=== PATIENT | female | born 1975 | race American Indian/Alaskan Native ===

== ENCOUNTER 2016-12-19 16:40 | Inpatient (IN) | payer BC ==
[2016-12-19 18:56] LABS: Hematocrit 27.4 % (30.3-42.9); Hemoglobin 8.4 gm/dl (10.1-14.3); Mean Corpuscular HGB Conc 31 % (30-34); Mean Corpuscular Volume 72 fl (79-97); Platelet Count 331 K/mm3 (140-440); Red Cell Distribution Width 18.8 % (13.2-15.2); White Blood Count 8.8 K/mm3 (4.5-11.0)
[2016-12-19 18:58] LABS: Mean Corpuscular Hemoglobin 22 pg (28-32)
[2016-12-19 19:44] LABS: Anion Gap 17 mmol/L; BUN/Creatinine Ratio 13.33; Blood Urea Nitrogen 8 mg/dL (7-17); Calcium 9.1 mg/dL (8.4-10.2); Carbon Dioxide 24 mmol/L (22-30); Chloride 98.1 mmol/L (98-107); Glucose 100 mg/dL (65-100); Sodium 135 mmol/L (137-145)
[2016-12-19 20:31] LABS: Bilirubin,Urine NEG (Negative); Blood,Urine NEG (Negative); Ketones,Urine NEG (Negative); Leukocyte Esterase,Urine MOD (Negative); Mucus,Urine FEW /HPF; Nitrite,Urine NEG (Negative); Protein,Urine <15 mg/dL mg/dL (Negative); Urobilinogen,Urine < 2.0 mg/dL (<2.0)
--- NOTE | 2016-12-19 21:47 | Cat Scan Report ---
FINAL REPORT PROCEDURE: CT HEAD/BRAIN WO CON TECHNIQUE: Computerized tomography of the head was performed without contrast material. HISTORY: syncope COMPARISON: No prior studies are available for comparison. FINDINGS: Skull and scalp: Normal. Paranasal sinuses: Normal. Ventricles and subarachnoid spaces: Normal. Cerebrum: No evidence of hemorrhage, acute infarction or mass . Cerebellum and brainstem: No evidence of hemorrhage, acute infarction or mass. Vasculature: Normal. Comments: None. IMPRESSION: Normal Examination
[2016-12-19] MEDS ORDERED: ANTIVERT PO ONE (23:21)
--- NOTE | 2016-12-19 23:25 | Emergency Department Report ---
HPI - General Chief Complaint: Syncope Time Seen by Provider: 12/19/16 23:12 - [facility] HPI: Room 5 The patient is a 41-year-old female presenting with a chief complaint of syncope. The patient states she awakened this morning in her usual state of health. The patient states while in the shower she felt slight dizziness. The patient states the dizziness has been intermittent throughout the day. At work she began to feel dizzy and went to visit the nurse. The patient states she was told she had a normal blood pressure and went back to work. At approximately 15:30 the patient states she turned around to talk to a coworker and passed out. Patient denied preceding chest pain, shortness of breath or palpitations. Patient denies nausea vomiting or diarrhea. Patient denies any history of bright red blood per rectum or melena. The patient currently complains of a slight headache and intermittent dizziness. After her initial syncopal episode and EMS was called, the patient states she was reported to have lost consciousness 3 more times with EMS. 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 - Family History Family history: no significant - Social History Smoking Status: Never Smoker Substance Use Type: None (denies illicit drug use), Alcohol (occasional) ED Review of Systems ROS: Stated complaint: HEADACHE AND DIZZY Other details as noted in HPI Comment: All other systems reviewed and negative Constitutional: denies: chills, fever Eyes: denies: eye pain, eye discharge, vision change ENT: denies: ear pain, throat pain Respiratory: denies: cough, shortness of breath, wheezing Cardiovascular: denies: chest pain, palpitations Endocrine: no symptoms reported Gastrointestinal: denies: abdominal pain, nausea, diarrhea Genitourinary: denies: urgency, dysuria, discharge Musculoskeletal: denies: back pain, joint swelling, arthralgia Skin: denies: rash, lesions Neurological: headache, vertigo, other (syncope) Psychiatric: denies: anxiety, depression Hematological/Lymphatic: denies: easy bleeding, easy bruising Physical Exam - Physical Exam Vital Signs: Vital Signs 12/19/16 12/19/16 18:17 22:44 Temperature 98 F 98.7 F Pulse Rate 96 H 94 H Respiratory 18 18 Rate Blood Pressure 160/100 Blood Pressure 135/81 [Left] O2 Sat by Pulse 100 98 Oximetry Physical Exam: GENERAL: The patient is well-developed well-nourished female lying on stretcher not appearing to be in acute distress. Patient complains of dizziness when she attempts to sit up from stretcher HEENT: Normocephalic. Atraumatic. Extraocular motions are intact. Patient has moist mucous membranes. There is no nystagmus NECK: Supple. No meningitic signs are noted. Trachea midline CHEST/LUNGS: Clear to auscultation. There is no respiratory distress noted. HEART/CARDIOVASCULAR: Regular. There is no tachycardia. There is no gallop rub or murmur. ABDOMEN: Abdomen is soft, nontender. Patient has normal bowel sounds. There is no abdominal distention. SKIN: There is no rash. There is no edema. There is no diaphoresis. NEURO: The patient is awake, alert, and oriented. The patient is cooperative. The patient has no focal neurologic deficits. The patient has normal speech MUSCULOSKELETAL:There is no evidence of acute injury. ED Course Vital Signs 12/19/16 12/19/16 18:17 22:44 Temperature 98 F 98.7 F Pulse Rate 96 H 94 H Respiratory 18 18 Rate Blood Pressure 160/100 Blood Pressure 135/81 [Left] O2 Sat by Pulse 100 98 Oximetry ED Medical Decision Making - Lab Data Result diagrams: 12/19/16 18:46 12/19/16 18:46 Laboratory Tests 12/19/16 12/19/16 12/19/16 18:46 18:46 20:04 WBC 8.8 RBC 3.80 Hgb 8.4 L Hct 27.4 L MCV 72 L MCH 22 L MCHC 31 RDW 18.8 H Plt Count 331 Sodium 135 L Potassium 4.0 Chloride 98.1 Carbon Dioxide 24 Anion Gap 17 BUN 8 Creatinine 0.6 L Estimated GFR > 60 BUN/Creatinine Ratio 13.33 Glucose 100 Calcium 9.1 Total Creatine Kinase CK-MB (CK-2) CK-MB (CK-2) Rel Index Troponin T Urine Color Yellow Urine Turbidity Clear Urine pH 6.0 Ur Specific [place] 1.013 Urine Protein <15 mg/dl Urine Glucose (UA) Neg Urine Ketones Neg Urine Blood Neg Urine Nitrite Neg Ur Reducing Substances Not Reportable Urine Bilirubin Neg Urine Ictotest Not Reportable Urine Urobilinogen < 2.0 Ur Leukocyte Esterase Mod Urine WBC (Auto) 2.0 Urine RBC (Auto) 2.0 U Epithel Cells (Auto) 3.0 Urine Mucus Few Urine HCG, Qual Negative 12/19/16 23:14 WBC RBC Hgb Hct MCV MCH MCHC RDW Plt Count Sodium Potassium Chloride Carbon Dioxide Anion Gap BUN Creatinine Estimated GFR BUN/Creatinine Ratio Glucose Calcium Total Creatine Kinase 121 CK-MB (CK-2) 1.1 CK-MB (CK-2) Rel Index 0.9 Troponin T < 0.010 Urine Color Urine Turbidity Urine pH Ur Specific [place] Urine Protein Urine Glucose (UA) Urine Ketones Urine Blood Urine Nitrite Ur Reducing Substances Urine Bilirubin Urine Ictotest Urine Urobilinogen Ur Leukocyte Esterase Urine WBC (Auto) Urine RBC (Auto) U Epithel Cells (Auto) Urine Mucus Urine HCG, Qual - EKG Data -: EKG Interpreted by Me EKG shows normal: sinus rhythm Rate: normal - EKG Data When compared to previous EKG there are: previous EKG unavailable Interpretation: nonspecific ST-T wave tawnya (T-wave inversions in leads 3, V2, V3) - Radiology Data Radiology results: report reviewed (CT head), image reviewed (CT head) CT head (read by radiologist)-normal examination - Differential Diagnosis syncope, vertigo, symptomatic anemia, ACS Critical care attestation.: If time is entered above; I have spent that time in minutes in the direct care of this critically ill patient, excluding procedure time. ED Disposition Clinical Impression: Syncope, Anemia, Dizziness Disposition: OP ADMITTED IP TO THIS HOSP Is pt being admited?: Yes Condition: Fair Instructions: Syncope (ED) Referrals: PRIMARY CARE, [Primary Care Provider] - 3-5 Days Time of Disposition: 23:50 (hospitalist paged)
[2016-12-19 23:35] LABS: Creatine Kinase MB 1.1 ng/mL (0.0-4.0)
[2016-12-19 23:36] LABS: Creatine Kinase 121 units/L (30-135)
[2016-12-20] MEDS ORDERED: TYLENOL PO PRN (01:13)
[2016-12-20] MEDS ORDERED: MILK OF MAGNESIA PO PRN (01:13)
[2016-12-20] MEDS ORDERED: ZOFRAN IV PRN (01:13)
[2016-12-20] MEDS ORDERED: DULCOLAX PR PRN (01:13)
[2016-12-20 02:31] LABS: Creatine Kinase 82 units/L (30-135); Creatine Kinase MB < 1.0 ng/mL (0.0-4.0)
--- NOTE | 2016-12-20 05:02 | Admit Criteria Form ---
Admission Criteria Documentation: SYNCOPE Clinical Indications for Admission to Inpatient Care ( Place 'X' for any and all applicable criteria): Admission is indicated for syncope and ANY ONE of the following (1)(2)(3)(4)(5) (6)(7) : [X ]I. Inpatient admission required rather than observation care (Also use Syncope: Observation Care Criteria as appropriate) because of ANY ONE of the following: [ ]a) Hemodynamic instability that is severe or persistent [ ]b) Cardiac arrhythmias of immediate concern identified or strongly suspected (eg, needs electrophysiologic study) [ ]c) Acute coronary syndrome identified (Also use Myocardial Infarction or Angina Criteria form ) [ ]d) Structural cardiac disorder (eg, aortic stenosis) suspected as cause that requires immediate correction [ ]e) Respiratory symptoms (eg, dyspnea, tachypnea) that are severe or persistent [ ]f) Neurologic signs or symptoms that are severe or persistent ( eg, stroke, seizures, altered mental status) [ ]g) Severe electrolyte abnormalities requiring inpatient care [ ]h) Supplemental oxygen or respiratory treatment for over 24 hrs that are performable only in acute inpatient setting [ ]i) IV fluid to replace significant ongoing (eg, for over 24 hrs ) losses (>3 L/m2 per day) [ ]j) Continuous intravenous infusion of anticoagulation, platelet inhibitor, vasoactive, or antiarrhythmic medication(15)(16) [ ]k) Pulmonary artery catheter monitoring [ ]l) Temporary pacemaker placement(17) [ ]m) Emergent cardioversion(18) [X ]n) Other conditions, treatment or monitoring requiring inpatient admission [ ]II. Suspicion of imminently dangerous cause (eg, rare causes like pericardial tamponade, pulmonary embolism) [ ]III. Syncope causing severe injury requiring hospitalization Extended stay beyond goal length of stay may be needed for(28) [ ]a) Dangerous arrhythmia(15)(23)(27)(29) [ ]b) Myocardial ischemia [ ]c) Seizure disorder [ ]d) Syncope-related injuries The original [employer] content created by [employer] has been revised. The portions of the content which have been revised are identified through the use of italic text or in bold, and [employer] has neither reviewed nor approved the modified material. All other unmodified content is copyright [facility] [employer]. Please see references footnoted in the original [facility] edition 2016 Admission Criteria Met: Yes
--- NOTE | 2016-12-20 05:29 | History and Physical Report ---
History of Present Illness Date of examination: 12/20/16 Date of admission: 12/20/16 01:13 History of present illness: This is a 41-year-old man with no medical problem comes emergency room should she had a syncopal episode while she was at work sitting down. It's unclear how long the syncopal episode lasted for, she had 3 more episodes after the initial one. She also complaining of a headache 6 Monday in the middle and occipital area, constant, intensity, 10, no radiation, she has not taken anything for the pain. Also complaining of dizziness Patient denies chest pain, palpitation, shortness of breath, cough, abdominal pain, hematochezia, dysuria, frequency, focal weakness, dysarthria, fever chills , polydipsia polyuria, hot or cold intolerance, easy bruisability, or rash or bleeding from mucosal membrane, rhinorrhea, epistaxis, earache, tinnitus, blurry vision, eye discharge, anxiety, depression. Other review of systems negative PAST SURGICAL HISTORY:None SOCIAL HISTORY: Denies alcohol, tobacco, drug FAMILY HISTORY: Hypertension Medications and Allergies Allergies Allergy/AdvReac Type Severity Reaction Status Date / Time No Known Allergies Allergy Unverified 12/19/16 18:22 Home Medications Medication Instructions Recorded Confirmed Last Taken Type Meclizine [Antivert] 25 mg PO TID PRN #90 tablet 12/21/16 Unknown Rx amLODIPine [Norvasc] 5 mg PO DAILY #30 tab 12/21/16 Unknown Rx Active Meds: Active Medications Acetaminophen (Tylenol) 650 mg PO Q4H PRN PRN Reason: Pain MILD(1-3)/Fever >100.5/PARR Bisacodyl (Dulcolax) 10 mg [place] QDAY PRN PRN Reason: Constipation unrelieved by MOM Enoxaparin Sodium (Lovenox) 40 mg SUB-Q QDAY SANTANA Magnesium Hydroxide (Milk Of Magnesia) 30 ml PO Q4H PRN PRN Reason: Constipation Ondansetron HCl (Zofran) 4 mg IV Q8H PRN PRN Reason: N/V unrelieved by Reglan Exam - Physical Exam Narrative exam: Gen. appearance: Patient lying in bed, no apparent distress HEENT: Normocephalic, atraumatic, pupils equally round and reactive to light, extraocular movement intact, and no sclericterus,. No JVD or thyromegaly or nodule,neck supple, no carotid bruit ,mucous membranes moist, no exudate or erythema Heart: S1, S2, regular rate and rhythm Lungs: Clear to auscultation bilaterally, breathing comfortable Abdomen: Positive bowel sounds, nontender, nondistended, no organomegaly Extremity: No edema, cyanosis, clubbing Skin: No rash, nodules, warm, dry Neuro: Oriented 3, cranial nerves II-12 intact, speech is fluent, motor and sensory intact - Constitutional Vitals: Temp Pulse Resp BP Pulse Ox 98.7 F 83 17 130/72 98 12/19/16 22:44 12/19/16 23:28 12/19/16 23:29 12/19/16 23:28 12/19/16 22:44 Results - Labs CBC & Chem 7: 12/21/16 04:38 12/21/16 04:38 - Imaging and Cardiology CT Scan - head: report reviewed Assessment and Plan Syncope unclear etiology Admits medicine Check cardiac enzymes, orthostatics, d-dimer, consult cardiology Start DVT prophylaxis, CT head pending
[2016-12-20 08:29] LABS: Creatine Kinase 73 units/L (30-135)
[2016-12-20 09:06] LABS: Creatine Kinase MB < 1.0 ng/mL (0.0-4.0)
[2016-12-20] MEDS: LOVENOX SUB-Q SCH (09:48)
--- NOTE | 2016-12-20 14:47 | Consultation ---
History of Present Illness Consult date: 12/20/16 Requesting physician: KAYLEIGH CRUZ Consult reason: syncope History of present illness: The patient is a 41 year old female who presented after a syncopal episode while at work yesterday. She states that since this past Monday, she has been experiencing intermittent dizziness described as the "room spinning." She also reports that she has stumbled several times while walking. Yesterday, while she was sitting in a chair at work, she turned to talk to a coworker, felt dizzy and passed out. After EMS arrived, she passed out 3 more times as they were assessing her and loading her onto the stretcher. She denies any chest pain, palpitations, shortness of breath, nausea, vomiting or diaphoresis. D-dimer negative. Troponin negative x 3. Hemoglobin 8.4. Orthostatics negative. Past History Past Medical History: No medical history Past Surgical History: hernia repair Social history: denies: smoking, alcohol abuse, prescription drug abuse, IV drug use, full code Family history: no significant family history Medications and Allergies Allergies Allergy/AdvReac Type Severity Reaction Status Date / Time No Known Allergies Allergy Unverified 12/19/16 18:22 Home Medications Medication Instructions Recorded Confirmed Last Taken Type No Known Home Medications [No 12/20/16 12/20/16 Unknown History Reported Home Medications] Active Meds: Active Medications Acetaminophen (Tylenol) 650 mg PO Q4H PRN PRN Reason: Pain MILD(1-3)/Fever >100.5/PARR Bisacodyl (Dulcolax) 10 mg [place] QDAY PRN PRN Reason: Constipation unrelieved by MOM Enoxaparin Sodium (Lovenox) 40 mg SUB-Q QDAY SANTANA Last Admin: 12/20/16 09:48 Dose: 40 mg Magnesium Hydroxide (Milk Of Magnesia) 30 ml PO Q4H PRN PRN Reason: Constipation Ondansetron HCl (Zofran) 4 mg IV Q8H PRN PRN Reason: N/V unrelieved by Reglan Review of Systems Constitutional: no fever, no chills Ears, nose, mouth and throat: no nasal congestion, no nasal discharge, no sinus pressure Cardiovascular: syncope, no chest pain, no orthopnea, no palpitations, no shortness of breath, no dyspnea on exertion Respiratory: no cough, no shortness of breath, no dyspnea on exertion, no congestion, no wheezing Gastrointestinal: no abdominal pain, no nausea, no vomiting, no diarrhea Genitourinary Female: no dysuria, no urgency Musculoskeletal: no neck stiffness, no neck pain, no myalgias Integumentary: no rash, no pruritis Neurological: syncope, ataxia, vertigo, headaches Endocrine: no cold intolerance, no heat intolerance Hematologic/Lymphatic: no easy bruising, no easy bleeding Allergic/Immunologic: no urticaria, no wheezing Physical Examination Vital Signs Temp Pulse Resp BP Pulse Ox 98 F 96 H 18 160/100 100 12/19/16 18:17 12/19/16 18:17 12/19/16 18:17 12/19/16 18:17 12/19/16 18:17 General appearance: no acute distress, obese HEENT: Positive: Normocephaly, Mucus Membranes Moist Neck: Positive: neck supple, trachea midline Cardiac: Positive: Reg Rate and Rhythm, S1/S2 Lungs: Positive: clear to auscultation Neuro: Positive: Grossly Intact Abdomen: Positive: Soft, Active Bowel Sounds. Negative: Tender Skin: Positive: Clear. Negative: Rash Extremities: Present: normal. Absent: edema Results 12/19/16 18:46 12/19/16 18:46 Cardiac Enzymes 12/20/16 12/20/16 Range/Units 01:51 07:39 CK-MB (CK-2) < 1.0 < 1.0 (0.0-4.0) ng/mL - Imaging and Cardiology Echo: pending EKG: image reviewed EKG interpretations - Telemetry EKG Rhythm: Sinus Rhythm - EKG Sinus rhythms and dysrhythmias: sinus rhythm Repolarization changes or abnormalities: ST or T wave suggestive of ischemia Assessment and Plan Obtain echocardiogram and carotids. Lexiscan thallium stress test in am. Will continue to observe on the monitor. - Patient Problems (1) Syncope Current Visit: Yes Status: Acute Qualifiers: Syncope type: S Encounter type: E (2) Vertigo Current Visit: Yes Status: Acute (3) Ataxia Current Visit: Yes Status: Acute (4) Abnormal EKG Current Visit: Yes Status: Acute (5) Anemia Current Visit: Yes Status: Acute Qualifiers: Anemia type: A Iron deficiency anemia type: I Vitamin B12 deficiency anemia type: V Folate deficiency anemia type: F Bone marrow failure anemia type: B Hemolytic anemia type: H Other causes of anemia: O
[2016-12-21 05:31] LABS: Eosinophils % (Auto) 2.4 % (0.0-4.3); Hemoglobin 8.2 gm/dl (10.1-14.3); Mean Corpuscular HGB Conc 30 % (30-34); Mean Corpuscular Hemoglobin 22 pg (28-32); Mean Corpuscular Volume 72 fl (79-97); Platelet Count 310 K/mm3 (140-440); Red Blood Count 3.74 M/mm3 (3.65-5.03); Red Cell Distribution Width 18.5 % (13.2-15.2); White Blood Count 5.5 K/mm3 (4.5-11.0)
[2016-12-21 05:51] LABS: Anion Gap 16 mmol/L; Blood Urea Nitrogen 8 mg/dL (7-17); Calcium 8.3 mg/dL (8.4-10.2); Carbon Dioxide 25 mmol/L (22-30); Chloride 100.2 mmol/L (98-107); Glucose 95 mg/dL (65-100); Potassium 3.9 mmol/L (3.6-5.0); Sodium 137 mmol/L (137-145)
[2016-12-21] MEDS ORDERED: LEXISCAN IV ONE ×2 (09:16→09:20)
--- NOTE | 2016-12-21 11:10 | Treadmill Report ---
NUCLEAR STUDY REASON FOR STUDY: Shortness of breath. READING PHYSICIAN: Alfonzo Michelle MD IMAGING PROTOCOL: The patient received 10 mCi of Technetium 99m Tetrofosmin for resting image and 28 mCi of Technetium 99m Tetrofosmin for stress imaging. The imaging for the whole procedure was completed 30-90 minutes following the initial injection of Technetium 99m tetrofosmin. The SPECT imaging in the 180 degree arc was performed in the right anterior oblique projection. Computerized reconstruction of the images was performed for analysis. IMAGING RESULTS: Normal cavity size from stress to rest. Normal distribution of radionuclide in the anterior, inferior, septal, and apical regions. Gated SPECT, EF greater than 65% with no wall motion abnormality. The patient infused with Lexiscan and had some mild EKG changes, nondiagnostic for ischemia. CONCLUSION: Normal rest and stress myocardial perfusion scan. No significant stress ischemia. No wall motion abnormality. Gated SPECT, EF greater than 65%. JOB# [id number] VENKATA/YARELIS
--- NOTE | 2016-12-21 11:16 | Progress Note ---
Assessment and Plan Await echo. Initiate meclizine. - Patient Problems (1) Syncope Current Visit: Yes Status: Acute Qualifiers: Syncope type: S Encounter type: E (2) Abnormal EKG Current Visit: Yes Status: Acute (3) Carotid stenosis, bilateral Current Visit: Yes Status: Acute (4) Anemia Current Visit: Yes Status: Acute Qualifiers: Anemia type: A Iron deficiency anemia type: I Vitamin B12 deficiency anemia type: V Folate deficiency anemia type: F Bone marrow failure anemia type: B Hemolytic anemia type: H (5) Ataxia Current Visit: Yes Status: Acute (6) Vertigo Current Visit: Yes Status: Acute Subjective Date of service: 12/21/16 Principal diagnosis: Syncope, Vertigo, Ataxia, Carotid stenosis, Abnormal ECG, Anemia Interval history: She still has vertigo. However, she did not experience any gait imbalance when she ambulated this morning. She had a negative stress test this morning. Regarding her anemia, she has a history of menorrhagia but has not been evaluated for this., Objective Vital Signs Temp Pulse Pulse Resp BP BP Pulse Ox 12/21/16 09:48 118 H 160/82 12/21/16 09:47 116 H 162/88 12/21/16 09:46 117 H 174/83 12/21/16 09:45 123 H 117/80 12/21/16 09:44 128 H 144/93 12/21/16 09:22 85 151/78 12/21/16 08:00 98.2 F 12/21/16 05:30 78 15 105/69 98 12/21/16 05:20 73 14 105/69 87 12/21/16 05:10 75 12 105/69 96 12/21/16 05:00 85 13 105/69 96 12/21/16 04:50 79 16 105/69 97 12/21/16 04:40 75 15 105/69 96 12/21/16 04:30 83 15 105/69 96 12/21/16 04:20 80 15 105/69 96 12/21/16 04:10 84 15 105/69 97 12/21/16 04:00 84 14 105/69 97 12/21/16 03:55 98.2 F 12/21/16 03:50 82 12 105/69 98 12/21/16 03:40 86 18 105/69 94 12/21/16 03:36 98.8 F 12/21/16 03:30 79 12 105/69 86 12/21/16 03:20 75 13 105/69 95 12/21/16 03:10 76 15 105/69 97 12/21/16 03:00 76 16 105/69 97 12/21/16 02:50 78 16 105/69 97 12/21/16 02:40 81 15 105/69 96 12/21/16 02:30 80 16 105/69 97 12/21/16 02:20 82 14 105/69 96 12/21/16 02:10 93 H 14 105/69 98 12/21/16 02:00 87 14 140/90 94 12/21/16 01:50 84 16 140/90 97 12/21/16 01:40 80 16 140/90 97 12/21/16 01:30 80 16 140/90 97 12/21/16 01:20 77 15 140/90 96 12/21/16 01:10 84 17 140/90 97 12/21/16 01:00 82 15 140/90 98 12/21/16 00:50 78 16 140/90 96 12/21/16 00:40 80 15 140/90 96 12/21/16 00:30 99 H 14 140/90 97 12/21/16 00:20 84 13 140/90 94 12/21/16 00:10 85 16 140/90 96 12/21/16 00:00 82 16 140/90 96 12/20/16 23:50 80 16 140/90 96 12/20/16 23:40 80 16 140/90 96 12/20/16 23:31 98.5 F 12/20/16 23:30 78 32 H 140/90 97 12/20/16 23:20 81 16 140/90 97 12/20/16 23:10 79 15 140/90 97 12/20/16 23:00 105 H 15 121/76 99 12/20/16 22:50 87 15 121/76 96 12/20/16 22:40 87 16 121/76 97 12/20/16 22:30 86 16 121/76 96 12/20/16 22:20 85 16 121/76 96 12/20/16 22:10 84 15 121/76 96 12/20/16 22:00 88 16 121/76 100 12/20/16 21:58 85 120/75 12/20/16 21:50 84 14 120/75 96 12/20/16 21:40 88 16 120/75 97 12/20/16 21:30 82 17 120/75 98 12/20/16 21:20 84 14 120/75 98 12/20/16 21:10 85 12 120/75 98 12/20/16 21:00 81 14 119/89 99 12/20/16 20:50 83 15 119/89 99 12/20/16 20:40 77 16 119/89 98 12/20/16 20:30 87 11 L 99 12/20/16 20:20 103 H 14 98 12/20/16 20:10 91 H 16 99 12/20/16 20:00 119/89 12/20/16 19:55 98.1 F 12/20/16 18:10 106 H 19 122/91 98 12/20/16 18:00 100 H 22 122/91 100 12/20/16 17:00 99 H 19 116/63 100 12/20/16 16:00 92 H 21 116/63 99 12/20/16 15:00 116/70 97 12/20/16 14:08 116/70 100 12/20/16 13:00 13 116/70 99 12/20/16 12:00 16 123/80 100 - Physical Examination General: No Apparent Distress HEENT: Positive: EOMI, Normocephaly, Mucus Membranes Moist Neck: Positive: neck supple, trachea midline Cardiac: Positive: Reg Rate and Rhythm, S1/S2 Lungs: Positive: clear to auscultation Neuro: Positive: Grossly Intact Abdomen: Positive: Soft, Active Bowel Sounds. Negative: Tender Skin: Positive: Clear. Negative: Rash Musculoskeletal: Normal Range of Motion Extremities: Present: normal. Absent: edema - Labs and Meds CBC 12/21/16 Range/Units 04:38 WBC 5.5 (4.5-11.0) K/mm3 RBC 3.74 (3.65-5.03) M/mm3 Hgb 8.2 L (10.1-14.3) gm/dl Hct 27.0 L (30.3-42.9) % Plt Count 310 (140-440) K/mm3 Lymph # 2.4 (1.2-5.4) K/mm3 [place] # 0.4 (0.0-0.8) K/mm3 Eos # 0.1 (0.0-0.4) K/mm3 Baso # 0.1 (0.0-0.1) K/mm3 Comprehensive Metabolic Panel 12/21/16 Range/Units 04:38 Sodium 137 (137-145) mmol/L Potassium 3.9 (3.6-5.0) mmol/L Chloride 100.2 (98-107) mmol/L Carbon Dioxide 25 (22-30) mmol/L BUN 8 (7-17) mg/dL Creatinine 0.5 L (0.7-1.2) mg/dL Glucose 95 (65-100) mg/dL Calcium 8.3 L (8.4-10.2) mg/dL - Imaging and Cardiology EKG: image reviewed Echo: pending - Telemetry EKG Rhythm: Sinus Rhythm - EKG Sinus rhythms and dysrhythmias: sinus rhythm Repolarization changes or abnormalities: ST or T wave suggestive of ischemia
[2016-12-21] MEDS: LOVENOX SUB-Q SCH (11:21)
[2016-12-21] MEDS ORDERED: ANTIVERT PO SCH (14:00)
--- NOTE | 2016-12-21 15:47 | Discharge Summary ---
Providers - Providers Date of Admission: 12/20/16 01:13 Attending physician: SHAWN CARMONA MD Primary care physician: PUSHPA TRAN MD Hospitalization Condition: Fair Hospital course: 41F w hx of menorrhagia/anemia who presented with syncope, she went on to have a nuclear stress test was negative. Her symptoms resolved and she was advised to fup with her [employer] [facility] as an outpatient Discharge Diagnosis Vasovagal Syncope menorrhagia Disposition: DISCHARGED TO HOME OR SELFCARE Time spent for discharge: 35 minutes Core Measure Documentation - Palliative Care Palliative Care/ Comfort Measures: Not Applicable - Core Measures Any of the following diagnoses?: none Exam - Constitutional Vitals: Temp Pulse Resp BP Pulse Ox 98.4 F 85 15 120/68 99 12/21/16 12:00 12/21/16 12:00 12/21/16 12:00 12/21/16 12:00 12/21/16 14:57 General appearance: Present: no acute distress, well-nourished - EENT Eyes: Present: PERRL ENT: hearing intact, clear oral mucosa - Neck Neck: Present: supple, normal ROM - Respiratory Respiratory effort: normal Respiratory: bilateral: CTA - Cardiovascular Heart Sounds: Present: S1 & S2. Absent: rub, click - Extremities Extremities: pulses symmetrical, No edema Peripheral Pulses: within normal limits - Abdominal General gastrointestinal: Present: soft, non-tender, non-distended, normal bowel sounds Female genitourinary: Present: normal - Integumentary Integumentary: Present: clear, warm, dry - Musculoskeletal Musculoskeletal: gait normal, strength equal bilaterally - Psychiatric Psychiatric: appropriate mood/affect, intact judgment & insight - Neurologic Neurologic: CNII-XII intact, moves all extremities Plan Follow up with: PRIMARY CARE, [Primary Care Provider] - 3-5 Days Prescriptions: amLODIPine [Norvasc] 5 mg PO DAILY #30 tab Meclizine [Antivert] 25 mg PO TID PRN #90 tablet PRN Reason: dizzyness
[2016-12-21 17:00] VITALS: BP 150/93
--- NOTE | 2016-12-23 08:12 | Vascular Lab Report ---
CAROTID DUPLEX STUDY: RIGHT PSVEDV CCA PROX:[id number] CCA DIST: [id number] ICA PROX: 7035 ICA MID:[id number] ICA DIST: 9833 ECA: 78 VERT: 69 24 LEFT PSVEDV CCA PROX:[id number] CCA DIST: 7621 ICA PROX: 8241 ICA MID:[id number] ICA DIST:[id number] ECA: 64 VERT: 85 25 REASON FOR EXAM: Carotid artery stenosis/syncope. COMMENTS ON THE RIGHT: Doppler frequency analysis is consistent with 50 to 79 percent diameter reduction by velocity criteria only of the internal carotid artery. Minimal amount of plaque is seen. The common carotid artery is patent. The external carotid artery is patent. The vertebral artery has antegrade flow. COMMENTS ON THE LEFT: Doppler frequency analysis is consistent with 50 to 79 percent diameter reduction by velocity criteria only of the internal carotid artery. Minimal amount of plaque is seen. The common carotid artery is patent. The external carotid artery is patent. The vertebral artery has antegrade flow. IMPRESSION: 50 to 79 percent diameter reduction by velocity criteria only of the bilateral internal carotid arteries. No evidence of significant luminal narrowing on grayscale. Clinical correlation recommended
== END 2016-12-21 16:45 | disposition home or self-care (01) | DRG 312 ==
LOC: ED 16:40 → 4A 12-20 01:13 → CC1 12-20 18:14
PROVIDERS: ADMIT Internal Medicine; ATTEND Internal Medicine
DX: R55 Syncope and collapse (principal); D64.9 Anemia, unspecified; I65.23 Occlusion and stenosis of bilateral carotid arteries; Z82.49 Family history of ischemic heart disease and other diseases of the circulatory system; R42 Dizziness and giddiness
CPT/HCPCS: 36415; 70450; 78452; 80048; 81001; 81025; 82550; 82553; 84484; 85025; 85027; 85379; 93005; 93010; 93017; 93306; 93880; 96372; A9502; J1650; J2785